=== PATIENT | female | born 1960 | race Caucasian/White ===

== ENCOUNTER → 2017-03-16 | Day surgery (SDC) | payer OTHER ==
[~2017-03-16] VITALS: Ht 167.6 cm; Wt 87.0 kg
[~2017-03-16] MED LIST: ACETAMINOPHEN 500 MG TAB PO ONE; AMT50 PO; FENTANYL CITRATE INJ 50 MCG/1 ML 2 ML VIAL ONE; FLUT0.15 NAE; HEPARIN SOD (PORCINE) 1000 UNIT/ML 10 ML VIAL ONE; IBUP-1050 PO; LEVO25TA5 PO; LISINOPRIL/HCTZ PO; MIDAZOLAM HCL 1 MG/ML 2ML VIAL ONE; NITROGLYCERIN/D5W 100MCG/ML 20ML SYR ONE; NURSING VERBAL MED ORDER ONE; NiCARDipine HCL INJ 2.5 MG/ML 10 ML AMP ONE; ZLF/100 PO; ZOLP5TAB6 PO
[2017-03-16 07:22] VITALS: BP 190/91; PULSE 70; TEMP 36.5; O2SAT 98; Ht 167.6 cm; Wt 87.0 kg
--- NOTE | 2017-03-16 09:08 | History & Physical Bridge Note ---
H&P Re-Evaluation Bridge Note: I have examined the patient, reviewed the History & Physical and in the interval since the performance of the History & Physical I have noted the following changes of clinical significance: No changes noted
--- NOTE | 2017-03-16 09:10 | Procedure Note ---
Pre-Mod Sedation Assessment General Date of Moderate Sedation: Mar 16, 2017. Vital Signs: Vital Signs Past 12 Hours Date Time Temp Pulse Resp B/P (MAP) Pulse Ox O2 Delivery O2 Flow Rate FiO2 03/16/17 07:22 36.5 70 16 190/91 98 Room Air Review Cardiovascular: regular rate, rhythm, no murmur Abdomen: non tender, soft, no organomegaly Lungs: lungs clear, normal breath sounds Airway Class: I Pre-Sedation Airway Assessment Oral Cavity: Dentures Able to Visualize Vocal Cords: No Short Thick Neck: No Hx of Sleep Apnea: No Smoking Status: Never Smoker Mallampati Classification: Class I ASA Classification: Class I Procedure Planning Contraindications-for Mod Sed: None Yes Notes The planned sedation has been discussed with the patient and consent obtained. I have identified the patient, determined the appropriateness of sedation and have assessed the patient immediately prior to the procedure. All medicine(s) and interventions are by my order.
--- NOTE | 2017-03-16 09:11 | Procedure Note ---
Post-Mod Sedation Assessment General Date of Moderate Sedation Mar 16, 2017. Stop 8:55AM Vital Signs: Vital Signs Past 12 Hours Date Time Temp Pulse Resp B/P (MAP) Pulse Ox O2 Delivery O2 Flow Rate FiO2 03/16/17 07:22 36.5 70 16 190/91 98 Room Air Review - Discharge Criteria Vital Signs Stable: Yes Alert/Oriented/Conversant: Yes Returned to Baseline Mental St: Yes Nausea Absent/Minimal: Yes Pain/Discomfort/Absent/Minimal: Yes Normal/Baseline Respirations: Yes Active Bleeding?: No Pt Received D/C Instructions: Yes Specific Proced. D/C Criteria Distal Pulses Present (Cardiac: Yes Groin site assessed-Card Cath: Yes Voided Prior To Discharge: Yes Discharged Patients Adult Escort/Transportation: Yes
--- NOTE | 2017-03-16 09:18 | Cardiac Catheterization ---
Procedure Note Procedure Date Mar 16, 2017. Pre-Procedure Diagnosis Angina AUC Score 7 Post-Procedure Diagnosis Normal Coronary Arteries Procedure(s) Performed Coronary Angiography Logistics Management Specialist Dr. Gaston [facility] Product Specialist(s) None Estimated Blood Loss None Medication(s) Versed, Lidocaine 1% Summary of Findings Normal Coronaries Hemodynamics Rest Ao: 152/97 Final Ao: 157/87 LV: Valve not crossed Recommendations Medical therapy and/or Counseling Specimens None Radiation Exposure (mGy) 919 Contrast (mls) 70 Fluids (cc crystalloids) 66 Procedural Complication(s) None Disposition Promotional Marketing Agent Holding/Recovery ACC Data Cardiac Status Clinical evaluation leading to the procedure CAD Presntation: Sx unlikely to be ischemic Anginal Classification: No symptoms Heart Failure: No Cardiogenic Shock w/in 24Hrs: No Cardiac Arrest w/in 24Hrs: No Imaging studies past 6 months: Yes Stress studies past 6 months: Yes Stress Echocardiogram: Yes - Indeterminant Cardiac CTA: Yes - Indeterminant Coronary Anatomy Dominant: Right Left Main (% Stenosis): Normal LAD (% Stenosis): Normal Circumflex (% Stenosis): Normal RCA (% Stenosis): Normal Diagnostic Status: Elective Closure Device Percutaneous Entry Location: Radial Closure Device: Radial Band Recommendations: Medical therapy and/or Counseling
--- NOTE | 2017-03-16 09:24 | Discharge Instructions ---
Discharge Instructions Procedure Procedure Date: Mar 16, 2017. Reason for Visit: Chest Pain,Equiv Car Ct, To Do. Discharge Discharge Date: Mar 16, 2017. Discharge Diagnosis: Normal Coronaries Last Recorded Wt (Kilograms): 87 Anesthesia Post Anesthesia Instructions: If you have had General Anesthesia or IV Sedation: * Do not drive today. * Resume driving when surgeon permits. * Do not make important decisions or sign legal documents today. * Call surgeon for: 1. Temperature elevations greater than 101 degrees F. 2. Uncontrollable pain. 3. Excessive bleeding. 4. Persistent nausea and vomiting. 5. Medication intolerance (nausea, vomiting or rash). * For nausea and vomiting use only clear liquids such as: tea, soda, bouillon until nausea subsides, then gradually increase diet as tolerated. * If you have any concerns or questions, call your surgeon's office. If physician is unavailable and it is an emergency, call 911 or go to the nearest emergency room. Instructions Activity Recommendations: limitations Recommended Home Diet: resume previous diet Allergies: Uncoded Allergies: NKDA (Allergy, Mild, 05/26/07) Provider Instructions ACTIVITY RECOMMENDATIONS: Excess manipulation of the wrist should be avoided for the next 24-48 hours. * No lifting over 2 pounds (approximately a 1/2 gallon of milk) with the utilized arm for 24 hours. * No strenuous activity such as bowling or tennis for 3 days. * Keep the site of the procedure covered with a bandage for 24 hours. *You may shower the day after the procedure. Do not take a tub bath or submerge the puncture site in water for the next 3 days. *Do not operate any motorized equipment for 3 days. SPECIAL CARE INSTRUCTIONS: The site may be slightly bruised and sore following your procedure. Should any of the following occur, contact the DrClaudio who performed your procedure. 1. Redness/inflammation, swelling, chills, or fever, or colored drainage at procedure site within 3-7 days after your procedure. 2. Coldness, discoloration, ongoing numbness, severe pain, or swelling. Expect mild tingling of hand and tenderness at the puncture site for up to three days. If this persists beyond three days, or other symptoms develop, notify the DrClaudio who performed your procedure. BLEEDING: If the procedure site on your wrist begins to bleed, do not panic 1. Place 1 or 2 fingers firmly just slightly above the insertion site to stop the bleeding. You may be able to feel your pulse as you hold pressure. 2. Lift your finger after 5 minutes to see if the bleeding has stopped. 3. Once the bleeding has stopped, gently wipe the wrist area clean with a bandage. * If the bleeding from your wrist does not stop after 10 minutes, or if there is a large amount of bleeding or spurting, call 911 (do not drive yourself to the hospital). SKIN IRRITATION: * You may experience some redness and/or swelling in the area where radiation was administered. If any skin irritation occurs, please contact your family physician. FOLLOW UP VISIT: Keep any scheduled doctor appointments. Follow Up Follow-up with: Follow-up with Dr. Bernardo as previously scheduled Stephanie Hazel Recommendations: Call your doctor if: * Temperature above 101 degrees * Pain not relieved by pain medicine ordered * There is increased drainage or redness from any incision * You have any unanswered questions or concerns. Your Doctors Instructions noted above were prepared by provider Cleve Gaston. Patient Signature Section: Patient Instructions Signature Page Jennifer Wise Patient (or Guardian) Signature/Date: I have read and understand the instructions given to me by my caregivers. Caregiver/RN/Doctor Signature/Date: The above-named patient and/or guardian has received patient instructions on this date. + Original Patient Signature Page (only) stays with chart. Please make copy for patient.
[2017-03-16 11:10] VITALS: BP 131/73; PULSE 83; O2SAT 96
== END | disposition home or self-care (01) ==
LOC: C.CATH 06:55
PROVIDERS: ATTEND Internal Medicine Interventional Cardiology
DX: I30.9 Acute pericarditis, unspecified (principal); I20.9 Angina pectoris, unspecified; R06.02 Shortness of breath; R53.83 Other fatigue; Z68.31 Body mass index [BMI] 31.0-31.9, adult; E03.9 Hypothyroidism, unspecified; E78.5 Hyperlipidemia, unspecified; F43.21 Adjustment disorder with depressed mood; Z90.710 Acquired absence of both cervix and uterus; Z83.3 Family history of diabetes mellitus; Z82.49 Family history of ischemic heart disease and other diseases of the circulatory system; Z87.891 Personal history of nicotine dependence

== ENCOUNTER 2025-06-18 13:05 | Observation (INO) ==
--- NOTE | 2025-06-18 13:31 | XRay Report ---
XR chest 1V portable CLINICAL HISTORY: Chest pain, nonspecific COMPARISON STUDY: 07/18/2020 FINDINGS: The patient is slightly rotated. The heart is normal in size. There is no failure. There is no acute parenchymal consolidation. There are no pleural effusions. There is minor linear atelectasi s/scarring at the lung bases. There is no pneumothorax. IMPRESSION: Minor basilar atelectasis/scarring. No acute findings. ACT 112: Negative or not required by law. Electronically signed by: Reji Auguste M.D. 06/18/2025 1:30 PM
[2025-06-18 13:39] LABS: Hematocrit (blood only) 42.3 % (37.0-47.0); Hemoglobin 14.1 g/dL (12.0-16.0); Immature Granulocytes # (auto) 0.01 K/uL (0.01-0.20); Immature Granulocytes % (auto) 0.2 %; Mean Corpuscular Hemoglobin 27.6 pg (25.0-34.0); Mean Corpuscular Volume 82.8 fL (80.0-100.0); Platelet Count 251 K/uL (130-400); RDW Standard Deviation 38.2 fL (36.4-46.3); Red Blood Count 5.11 M/uL (4.20-5.40); White Blood Count 6.32 K/ul (4.8-10.8)
--- NOTE | 2025-06-18 13:45 | Emergency Department Note ---
Impression & Plan Chest pain, HTN (hypertension), Abnormal EKG ED Provider Note NAME: AVNI WELSH AGE: 65 SEX: F : 1960 ARRIVES VIA: Walk-In INFORMANT: Patient, ED PROVIDER(S): Jaiden Beaver DO CHIEF COMPLAINT: Chest pain HPI: The patient is a 65-year-old female who presented to the emergency department for an evaluation of chest pain. The patient describes left-sided chest pain which began over the last 24 hours. The patient has a history of chest pain in the past. She did take nitroglycerin without any relief. She had a recent cardiac catheterization but no stenting was recommended. Patient has extensive history of hypertension. She also has a history of a bundle branch block. The patient states that she has been compliant with her outpatient medications otherwise. She denies having any fever or chills. She denies having any headache. She denies have any leg swelling or leg pain. ROS: See above HPI for pertinent positives & negatives. A total of 10 systems reviewed and were otherwise negative. PAST MEDICAL HISTORY: See Below PAST SURGICAL HISTORY: See Below FAMILY HISTORY: See Below SOCIAL HISTORY: See Below HOME MEDICATIONS: See Below ALLERGIES: See Below VITALS: See Below PHYSICAL EXAMINATION: GENERAL: Patient is awake alert in no acute distress patient is resting comfortably and showing no signs of anxiety EYES: The conjunctivae are clear. The pupils are round and reactive. EARS, NOSE, MOUTH AND THROAT: The nose is without any evidence of any deformity. NECK: The neck is nontender and supple. RESPIRATORY: Normal respiratory effort is noted there is no evidence of wheezing rhonchi or rales CARDIOVASCULAR: Regular rate and rhythm noted there no murmurs rubs or gallops normal S1 normal S2. GASTROINTESTINAL: The abdomen is soft. Abdomen is nontender. MUSCULOSKELETAL/EXTREMITIES: There is no evidence of gross deformity full range of motion is noted in the hips and shoulders. SKIN: There is no obvious evidence of any rash. There are no petechiae, pallor or cyanosis noted. NEUROLOGIC: Patient is awake alert and oriented x3 MEDICAL DECISION MAKING: The patient is a 65-year-old female who presented to the emergency department for an evaluation of chest pain. The patient describes chest pain which is worsened with exertion and does have radiation components. The patient is a history of similar episodes in the past. She had an abnormal nuclear test which led to a cardiac catheterization. Cardiac catheterization did not show any acute occlusion requiring stenting. The patient presented to the Emergency Department today because of ongoing symptoms. She was found to have hypertension. EKG showed no acute change from previous but did show changes consistent with LVH. She also has a bundle branch block pattern. I discussed patient's laboratory and radiographic studies with her. Cardiac biomarker was negative. At this time I do feel the patient is likely experiencing symptoms because of the elevated blood pressure especially the diastolic blood pressure. This may be affecting her coronary artery filling. I do feel that she would be a better candidate for inpatient management. She was treated with Ativan which did help her blood pressure somewhat as I do feel she does have some anxiety related to this pain. Given her findings and risk factors I discussed her condition with the on-call [facility] hospitalist. They have agreed to evaluate the patient in the emergency department for further management and disposition. Triage Nursing notes reviewed. Prior medical records reviewed Vital Signs: reviewed and remarkable for no significant abnormalities Differential diagnosis: Cardiac ischemia, aortic dissection, pulmonary embolism, pneumothorax, pneumonia, pericarditis, myocarditis, esophageal rupture, GERD, cholecystitis, pancreatitis, musculoskeletal, as well as other pathologies. ER treatment provided: See below Diagnostics interpreted by me: ECG: EKG was obtained in the emergency department. My interpretation is normal sinus rhythm at 70 bpm. Left bundle branch block pattern was noted. LVH was suggested by voltage criteria. This was compared to a tracing from June 08, 2014. No specific changes were noted. Cardiac Monitoring: An order was placed for continuous cardiac monitoring. The monitor shows a rate of 85 bpm with sinus rhythm. Laboratory studies: As stated above and show below. Imaging studies: See below. Radiographic imaging was reviewed by myself Consultation(s): I discussed this case with Dr. Walker [facility] Past Med/Surg History Problem List (Updated 06/18/25 @ 15:22 by Jaiden Beaver DO) Abnormal EKG (Acute) Chest pain (Acute) Abnormal nuclear cardiac imaging test Left arm pain Palpitations Obesity Left ventricular hypertrophy PASTRANA (dyspnea on exertion) Pre-diabetes Vitamin D deficiency Anxiety and depression Fibromyalgia Vaginal bleeding Numbness and tingling of both legs Transient insomnia Small bowel obstruction (~04/17/08) at [facility] Hyperlipidemia Benign neoplasm of colon (~07/2016) 07/14/2016-hyperplastic Adjustment disorder with depressed mood Hypothyroid Urinary incontinence HTN (hypertension) (Acute) Neck pain on left side Medical History Pericarditis (~1997) Grief (~09/16/19) Loss of granddaughter Gout Surgical History History of cardiac catheterization 2003 and 2015-normal History of heart surgery Heart cath x 3 History of hysterectomy (~2003) Heavy periods-no cancer-ovaries Family History Father Diabetes Hypertension Myocardial infarction Grandfather (Maternal) Cardiac disorder Kidney stones Prostate cancer Denies family history of Ovarian cancer Breast cancer Lung cancer Colorectal cancer Social History Smoking Status: Never smoker Tobacco Type: Cigarettes Age Started Using Tobacco: 14; Age Quit Using Tobacco: 33; packs per day: 0.25; Second Hand Exposure: No; Do You Dip or Chew Tobacco: No; Hx Alcohol Use: No Hx Substance Use: No Preferred Language: Moldovan Communication Ability: Effective Visual Impairment: No Limitations Hearing Ability: Hard of Hearing Lead Auditor Required: No Beliefs That Will Affect Care: None marital status: Current Living Situation: Spouse current occupational status: employed current occupation: cashier clerk at [employer] How many Children do You have: 3 Feels Safe at Home: Yes Childhood Exposure to Second-Hand Smoke: No Diet: regular caffeine: No during the past year weight has: remained stable Dental Care, Regularly: No Physical Activity Frequency: 5-6 Times per Week Physical Activity Frequency Comment: walk Seatbelt Use: always Sunscreen Use: Yes Assistive Devices: Hearing Aid - Bilateral Allergies Allergies Allergy/AdvReac Type Severity Reaction Status Date / Time No Known Drug Allergies Allergy Verified 03/14/25 07:09 Home Meds Home Medications Medication Instructions Recorded Confirmed acetaminophen 650 mg 650 mg PO Q12H PRN Pain 03/19/22 06/18/25 tablet,extended release (Tylenol Arthritis Pain) nitroglycerin 0.4 mg sublingual 0.4 mg sublingual Q5M PRN Chest 11/30/24 06/18/25 tablet Pain pantoprazole 20 mg tablet,delayed 20 mg PO DAILY 11/30/24 06/18/25 release estradiol 0.01% (0.1 mg/gram) 1 g vaginal UD 06/18/25 06/18/25 vaginal cream hydralazine 25 mg tablet 25 mg PO BID 06/18/25 06/18/25 lisinopril 10 mg tablet 20 mg PO DAILY 06/18/25 06/18/25 miscellaneous medical supply 06/18/25 06/18/25 Previous Rx's Medication Instructions Recorded nystatin 100,000 unit/gram topical 1 applic topical TID #60 grams 08/13/22 powder metoprolol succinate 25 mg 25 mg PO DAILY #90 tabs 11/30/24 tablet,extended release 24 hr tirzepatide 10 mg/0.5 mL 10 mg (0.5 mL) subcut .weekly #2 mL 11/30/24 subcutaneous pen injector (Katherine) gabapentin 300 mg capsule 300 mg PO TID #90 caps 12/10/24 hydrochlorothiazide 25 mg tablet 25 mg PO DAILY #90 tabs 02/18/25 metformin 500 mg tablet 500 mg PO DAILY #90 tabs 06/13/25 Results & Data (ED) Vital Signs Vital Signs - 24 hr 06/18/25 13:12 06/18/25 13:24 06/18/25 13:29 Temperature 36.6 C Temperature Source Temporal Artery Scan Pulse Rate 80 Pulse Rate [Apical] 74 Pulse Strength [Apical] Normal Respiratory Rate 18 19 Respiratory Effort / Characteristics Non-Labored Spontaneous Non-Labored Respiratory Depth Normal Normal Respiratory Pattern Regular Blood Pressure 173/108 H Blood Pressure [Right Arm] 185/107 H Blood Pressure Mean 129 Blood Pressure Mean [Right Arm] 133 Blood Pressure Position Sitting Blood Pressure Position [Right Arm] Pulse Oximetry 98 96 98 Oxygen Delivery Method Room Air Room Air Sepsis Recent Fever Within 48 Hours No Sepsis New/Unexplained Change in Mental Status No Sepsis Action Taken by Nursing No Action Required 06/18/25 14:01 06/18/25 14:01 06/18/25 14:19 Temperature Temperature Source Pulse Rate 77 Pulse Rate [Apical] 71 Pulse Strength [Apical] Respiratory Rate 17 Respiratory Effort / Characteristics Non-Labored Spontaneous Respiratory Depth Normal Respiratory Pattern Regular Blood Pressure Blood Pressure [Right Arm] 169/103 H Blood Pressure Mean Blood Pressure Mean [Right Arm] 125 Blood Pressure Position Blood Pressure Position [Right Arm] Lying Pulse Oximetry 96 96 Oxygen Delivery Method Room Air Room Air Sepsis Recent Fever Within 48 Hours Sepsis New/Unexplained Change in Mental Status Sepsis Action Taken by Nursing 06/18/25 15:00 Temperature Temperature Source Pulse Rate Pulse Rate [Apical] 77 Pulse Strength [Apical] Respiratory Rate 14 Respiratory Effort / Characteristics Respiratory Depth Respiratory Pattern Blood Pressure Blood Pressure [Right Arm] 153/94 H Blood Pressure Mean Blood Pressure Mean [Right Arm] 113 Blood Pressure Position Blood Pressure Position [Right Arm] Pulse Oximetry 96 Oxygen Delivery Method Sepsis Recent Fever Within 48 Hours Sepsis New/Unexplained Change in Mental Status Sepsis Action Taken by Long Term Medications Current Medication List: was personally reviewed by me Laboratory Data Attestation: I reviewed the patient's lab results. 06/18/25 13:20 06/18/25 13:20 Lab Results 06/18/25 Range/Units 13:20 WBC 6.32 (4.8-10.8) K/ul RBC 5.11 (4.20-5.40) M/uL Hgb 14.1 (12.0-16.0) g/dL Hct 42.3 (37.0-47.0) % MCV 82.8 (80.0-100.0) fL MCH 27.6 (25.0-34.0) pg MCHC 33.3 (32.0-36.0) g/dL RDW Std Deviation 38.2 (36.4-46.3) fL RDW Coeff of Lan 12.7 (11.5-14.5) % Plt Count 251 (130-400) K/uL MPV 9.6 (9.4-12.4) fL Immature Gran % (Auto) 0.2 % Neut % (Auto) 57.2 % Lymph % (Auto) 28.2 % Powell % (Auto) 10.3 % Eos % (Auto) 3.6 % Baso % (Auto) 0.5 % Neut # (Auto) 3.62 (1.40-6.50) K/uL Lymph # (Auto) 1.78 (1.20-3.40) K/uL Powell # (Auto) 0.65 H (0.11-0.59) K/uL Eos # (Auto) 0.23 (0.00-0.50) K/uL Baso # (Auto) 0.03 (0.00-0.20) K/uL Immature Gran # (Auto) 0.01 (0.01-0.20) K/uL PT 10.6 (9.0-12.0) Seconds INR 1.0 (0.9-1.1) APTT 27 (21-31) Seconds PTT Ratio 1.0 Sodium 140 (136-145) mmol/L Potassium 4.2 (3.5-5.1) mmol/L Chloride 106 (98-107) mmol/L Carbon Dioxide 29 (21-32) mmol/L Anion Gap 5 (3-11) BUN 26 H (6-23) mg/dl Creatinine 1.07 (0.6-1.2) mg/dl Est Cr Clr Drug Dosing 47.8 ml/min eGFR 56.93 BUN/Creatinine Ratio 24.3 H (10-20) Glucose 83 (70-99(Fasting)) mg/dl Calcium 10.0 (8.6-10.3) mg/dl Total Bilirubin 0.5 (0.2-1.0) mg/dl AST 17 (13-39) U/L ALT 7 (7-52) U/L Alkaline Phosphatase 75 (34-104) U/L Troponin I High Sens 6.0 (0-14) pg/ml Total Protein 7.3 (6.0-8.3) gm/dl Albumin 4.6 (3.4-5.0) gm/dl Globulin 2.7 (2.5-4.0) gm/dl Albumin/Globulin Ratio 1.7 (0.9-2) Lipase 19 (11-82) U/L Administered Medications Discontinued Medications Lorazepam (Lorazepam 1 Mg/1 Ml Syr Ed Inj Use) 0.5 mg IV ONE STA Stop: 06/18/25 13:43 Last Admin: 06/18/25 14:03 Dose: 0.5 mg Documented By: Coty Imaging Data Attestation: I personally reviewed and interpreted this imaging study as follows: My Impression: 1 view chest x-ray was obtained in the emergency department. My interpretation is no free air or definite infiltrate, final report below. Radiologist's Impression: Chest X-Ray 06/18/25 13:15 XR chest 1V portable CLINICAL HISTORY: Chest pain, nonspecific COMPARISON STUDY: 07/18/2020 FINDINGS: The patient is slightly rotated. The heart is normal in size. There is no failure. There is no acute parenchymal consolidation. There are no pleural effusions. There is minor linear atelectasis/scarring at the lung bases. There is no pneumothorax. IMPRESSION: Minor basilar atelectasis/scarring. No acute findings. ACT 112: Negative or not required by law. Electronically signed by: Reji Auguste M.D. 06/18/2025 1:30 PM Discharge Plan Visit Data Chief Complaint: Cardiac Assessment Stated Complaint: CHEST PAIN, HIGH BLOOD PRESSURE ED Provider: Jaiden Beaver Discharge Problem: Chest pain, HTN (hypertension), Abnormal EKG Patient Disposition: Being Evaluated by Hospitalist Condition: Fair Forms Stand Alone Forms: My [facility] Prescriptions Prescriptions: No Action hydrochlorothiazide 25 mg tablet 25 mg PO DAILY Qty: 90 3RF metformin 500 mg tablet 500 mg PO DAILY Qty: 90 1RF nystatin 100,000 unit/gram powder 1 applic topical TID Qty: 60 1RF acetaminophen [Tylenol Arthritis Pain] 650 mg tablet extended release 650 mg PO Q12H PRN (Reason: Pain) pantoprazole 20 mg tablet,delayed release (DR/EC) 20 mg PO DAILY nitroglycerin 0.4 mg tablet, sublingual 0.4 mg sublingual Q5M PRN (Reason: Chest Pain) metoprolol succinate 25 mg tablet extended release 24 hr 25 mg PO DAILY Qty: 90 3RF Mounjaro 10 mg/0.5 mL pen injector 10 mg subcut .weekly Qty: 2 11RF gabapentin 300 mg capsule 300 mg PO TID Qty: 90 2RF hydralazine 25 mg tablet 25 mg PO BID estradiol 0.01 % (0.1 mg/gram) cream 1 g VAGINAL UD (DME) miscellaneous medical supply Misc VAGINAL Rx Instructions: blood pressure cuff lisinopril 10 mg tablet 20 mg PO DAILY Referrals Referrals: Chavez Donald CRNP [Primary Care Provider] -
[2025-06-18] MEDS: LORazepam 1 MG/1 ML SYR ED Inj Use IV STA (14:03)
[2025-06-18 14:04] LABS: INR 1.0 (0.9-1.1); Partial Thromboplastin Time 27 Seconds (21-31); Prothrombin Time 10.6 Seconds (9.0-12.0)
[2025-06-18 14:10] LABS: Alanine Aminotransferase 7.0 U/L (7-52); Albumin Globulin Ratio 1.7 (0.9-2); Albumin Level 4.6 gm/dl (3.4-5.0); Alkaline Phosphatase 75.0 U/L (34-104); Anion Gap 5.0 (3-11); Bilirubin,Total 0.5 mg/dl (0.2-1.0); Blood Urea Nitrogen 26.0 mg/dl (6-23); Calcium 10.0 mg/dl (8.6-10.3); Carbon Dioxide 29.0 mmol/L (21-32); Chloride 106.0 mmol/L (98-107); Creatinine Clr Calc Pharmacy 47.8 ml/min; Globulin 2.7 gm/dl (2.5-4.0); Glucose 83.0 mg/dl (70-99(Fasting)); Lipase 19.0 U/L (11-82); Potassium 4.2 mmol/L (3.5-5.1); Sodium 140.0 mmol/L (136-145); Total Protein 7.3 gm/dl (6.0-8.3)
--- NOTE | 2025-06-18 16:13 | History & Physical Report ---
Date of Service June 18, 2025 Assessment & Plan (1) Atypical chest pain: Plan: Observation with telemetry. Serial troponins. Repeat EKG in the morning, June 19 (2) Uncontrolled hypertension: Plan: Uptitrate hydralazine dosage. Discontinue hydrochlorothiazide. Continue MEGHAN inhibitor because she has underlying diabetes (3) Anxiety disorder: Plan: Lorazepam as needed (4) Type 2 diabetes mellitus: Plan: ADA diet. Sliding scale coverage. Metformin and Mounjaro are temporarily on hold Plan Hopeful discharge to home tomorrow, June 19 History of Present Illness Chief Complaint: Chest discomfort, anxiety Primary Care Provider: BRETT Carlos 65-year-old female who presents with vague chest discomfort that occurred at rest accompanied by anxiety. She also has uncontrolled hypertension. Initial troponin is normal and initial EKG is negative for any acute changes. She recently underwent left heart catheterization with negative results earlier this year. Cardiac echo done in November of this year reveals severe left ventricular hypertrophy with normal ejection fraction. Admission chest x-ray is unremarkable. Her first troponin is normal and maximum blood pressure recorded in the ED was 185/107. She denies syncope or palpitations. She is admitted for further evaluation and treatment Allergies Allergy/AdvReac Type Severity Reaction Status Date / Time No Known Drug Allergies Allergy Verified 03/14/25 07:09 Home Medications Medication Instructions Recorded Confirmed Type acetaminophen 650 mg 650 mg PO Q12H PRN Pain 03/19/22 06/18/25 History tablet,extended release (Tylenol Arthritis Pain) nystatin 100,000 unit/gram topical 1 applic topical TID #60 grams 08/13/22 06/18/25 Rx powder metoprolol succinate 25 mg 25 mg PO DAILY #90 tabs 11/30/24 06/18/25 Rx tablet,extended release 24 hr nitroglycerin 0.4 mg sublingual 0.4 mg sublingual Q5M PRN Chest 11/30/24 06/18/25 History tablet Pain pantoprazole 20 mg tablet,delayed 20 mg PO DAILY 11/30/24 06/18/25 History release tirzepatide 10 mg/0.5 mL 10 mg (0.5 mL) subcut .weekly #2 mL 11/30/24 06/18/25 Rx subcutaneous pen injector (Mounjaro) gabapentin 300 mg capsule 300 mg PO TID #90 caps 12/10/24 06/18/25 Rx hydrochlorothiazide 25 mg tablet 25 mg PO DAILY #90 tabs 02/18/25 06/18/25 Rx metformin 500 mg tablet 500 mg PO DAILY #90 tabs 06/13/25 06/18/25 Rx estradiol 0.01% (0.1 mg/gram) 1 g vaginal UD 06/18/25 06/18/25 History vaginal cream hydralazine 25 mg tablet 25 mg PO BID 06/18/25 06/18/25 History lisinopril 10 mg tablet 20 mg PO DAILY 06/18/25 06/18/25 History miscellaneous medical supply 06/18/25 06/18/25 History Past Med/Surg History Problem List (Updated 06/18/25 @ 16:12 by Gary Walker MD) Type 2 diabetes mellitus Anxiety disorder Uncontrolled hypertension Atypical chest pain Abnormal EKG (Acute) Chest pain (Acute) Abnormal nuclear cardiac imaging test Left arm pain Palpitations Obesity Left ventricular hypertrophy PASTRANA (dyspnea on exertion) Pre-diabetes Vitamin D deficiency Anxiety and depression Fibromyalgia Vaginal bleeding Numbness and tingling of both legs Transient insomnia Small bowel obstruction (~04/17/08) at [facility] Hyperlipidemia Benign neoplasm of colon (~07/2016) 07/14/2016-hyperplastic Adjustment disorder with depressed mood Hypothyroid Urinary incontinence HTN (hypertension) (Acute) Neck pain on left side Medical History Pericarditis (~1997) Grief (~09/16/19) Loss of granddaughter Gout Surgical History History of cardiac catheterization 2003 and 2016-normal History of heart surgery Heart cath x 3 History of hysterectomy (~2003) Heavy periods-no cancer-ovaries Family History Father Diabetes Hypertension Myocardial infarction Grandfather (Maternal) Cardiac disorder Kidney stones Prostate cancer Denies family history of Ovarian cancer Breast cancer Lung cancer Colorectal cancer Social History Smoking Status: Never smoker Tobacco Type: Cigarettes Age Started Using Tobacco: 14; Age Quit Using Tobacco: 33; packs per day: 0.25; Second Hand Exposure: No; Do You Dip or Chew Tobacco: No; Hx Alcohol Use: No Hx Substance Use: No Preferred Language: [place] Communication Ability: Effective Visual Impairment: No Limitations Hearing Ability: Hard of Hearing Rn Labor Delivery Required: No Beliefs That Will Affect Care: None marital status: Current Living Situation: Spouse current occupational status: employed current occupation: parking cashier at [employer] How many Children do You have: 3 Feels Safe at Home: Yes Childhood Exposure to Second-Hand Smoke: No Diet: regular caffeine: No during the past year weight has: remained stable Dental Care, Regularly: No Physical Activity Frequency: 5-6 Times per Week Physical Activity Frequency Comment: walk Seatbelt Use: always Sunscreen Use: Yes Assistive Devices: Hearing Aid - Bilateral Review of Systems 2 Review of Systems: Constitutionalno fever or chills ENTno blurred vision, no double vision, no epistaxis, no sore throat Respiratoryno cough, no wheezing, no shortness of breath Cardiacno palpitations, no syncope. Chest discomfort at rest prior to admission has resolved Thu nausea, vomiting, diarrhea, melena, hematochezia GUno urinary retention, no urinary incontinence, no dysuria, no hematuria Musculoskeletalno joint pain, no muscle tenderness Skinno bruising, no rashes, no pruritus Neurono isolated weakness, no paresthesia, no weakness Psychno depression. She was anxious on initial presentation to the ED Physical Exam 2 Physical Exam: General-alert and oriented x3, no fever, no chills HEENT-head atraumatic and normocephalic, pupils equal and reactive to light, extraocular muscles intact Neck-no lymphadenopathy or thyromegaly, trachea midline Chest-clear to auscultation. No rales, wheezing or rhonchi Cardiac-regular rate and rhythm, normal S1 and S2 Abdomen-normal bowel sounds, no hepatosplenomegaly Extremities-no cyanosis, clubbing, or edema Neuro-cranial nerves II through XII intact, motor and sensory function within normal limits, strength symmetrical, no focal deficits Psych-normal affect, normal mood Results & Data Results & Data Vital Signs (Past 12 Hours) Vital Signs Temp Pulse Pulse Resp BP BP Pulse Ox 06/18/25 15:30 68 13 96 06/18/25 15:30 156/104 H 06/18/25 15:15 174/108 H 06/18/25 15:15 73 20 97 06/18/25 15:00 77 14 153/94 H 96 06/18/25 14:19 77 06/18/25 14:01 71 17 169/103 H 96 06/18/25 14:01 96 06/18/25 13:29 74 19 185/107 H 98 06/18/25 13:24 96 06/18/25 13:12 36.6 C 80 18 173/108 H 98 O2 Del Method 06/18/25 15:30 Room Air 06/18/25 15:30 06/18/25 15:15 06/18/25 15:15 06/18/25 15:00 06/18/25 14:19 06/18/25 14:01 Room Air 06/18/25 14:01 Room Air 06/18/25 13:29 Room Air 06/18/25 13:24 06/18/25 13:12 Room Air Laboratory Results 06/18/25 13:20 06/18/25 13:20 Code Status & VTE Plan Code Status Full code PG Care Time/CCT Total # of Minutes Spent Total Time Spent with Patient: Total time spent is greater than 50% in coordination of care (as documented) at patient's floor/unit and/or counseling patient: Coding Level of Care Code 41395 INT INP/OBS CARE 3/75MIN Diagnoses Atypical chest pain R07.89 Uncontrolled hypertension I10 Anxiety disorder F41.9 Type 2 diabetes mellitus E11.9
[2025-06-18] MEDS ORDERED: DEXTROSE 50% 50 ML SYRINGE IV PRN (17:54)
[2025-06-18] MEDS ORDERED: NITROGLYCERIN SL 0.4 MG/TAB TAB SL PRN (17:54)
[2025-06-18] MEDS ORDERED: CARBOHYDRATES FOR HYPOGLYCEMIA PO PRN (17:54)
[2025-06-18] MEDS ORDERED: ONDANSETRON INJ 2 MG/ML 2 ML VIAL IV PRN (17:54)
[2025-06-18] MEDS ORDERED: GLUCOSE 40% GEL 15 GM TUBE PO PRN (17:54)
[2025-06-18] MEDS ORDERED: GLUCAGON FOR INJ 1 MG VIAL SQ PRN (17:54)
[2025-06-18] MEDS ORDERED: LORazepam 0.5 MG TAB PO PRN (17:54)
[2025-06-18] MEDS ORDERED: GLUCOSE 10 TAB/TUBE PO PRN (17:54)
[2025-06-18] MEDS: INSULIN ASPART PER UNIT CHARGE SC SCH (19:08)
[2025-06-18] MEDS: GABAPENTIN 300 MG CAP PO SCH (20:26)
[2025-06-18] MEDS: ACETAMINOPHEN 325 MG TAB PO PRN (20:26)
[2025-06-19] MEDS: METOPROLOL SUCC 25MG EXT REL TAB PO SCH (09:19)
--- NOTE | 2025-06-19 11:00 | Discharge Summary ---
Discharge Summary Date of Service June 19, 2025 Principal Dx & Hospital Course #1 = Principal Diagnosis (1) Atypical chest pain: Observation with telemetry. Serial troponins are normal. Repeat EKG done today, June 19, shows no new findings. (2) Uncontrolled hypertension: Blood pressure is now controlled after uptitration of hydralazine dosage. Hydrochlorothiazide has been discontinued. Lisinopril dosage has been de creased. (3) Anxiety disorder: Lorazepam as needed. This will continue on a as needed basis at discharge (4) Type 2 diabetes mellitus: ADA diet. Sliding scale coverage. Metformin and Mounjaro are temporarily on hold and will be restarted at discharge Plan Home today, June 19 Admission HPI Per Admitting Provider 65-year-old female who presents with vague chest discomfort that occurred at rest accompanied by anxiety. She also has uncontrolled hypertension. Initial troponin is normal and initial EKG is negative for any acute changes. She recently underwent left heart catheterization with negative results earlier this year. Cardiac echo done in November of this year reveals severe left ventricular hypertrophy with normal ejection fraction. Admission chest x-ray is unremarkable. Her first troponin is normal and maximum blood pressure recorded in the ED was 185/107. She denies syncope or palpitations. She is admitted for further evaluation and treatment Discharge Exam General-alert and oriented x3, no fever, no chills HEENT-head atraumatic and normocephalic, pupils equal and reactive to light, extraocular muscles intact Neck-no lymphadenopathy or thyromegaly, trachea midline Chest-clear to auscultation. No rales, wheezing or rhonchi Cardiac-regular rate and rhythm, normal S1 and S2 Abdomen-normal bowel sounds, no hepatosplenomegaly Extremities-no cyanosis, clubbing, or edema Neuro-cranial nerves II through XII intact, motor and sensory function within normal limits, strength symmetrical, no focal deficits Psych-normal affect, normal mood Discharge Plan Discharge Items Patient Disposition: Home - Self-Care Reason For Visit: CHEST PAIN, UNCONTROLLED HTN Discharge Diagnosis: Atypical chest pain, uncontrolled hypertension, anxiety disorder Condition on Discharge: Good Activity: Resume your previous activity Non-emergency contact: Primary Care Provider Call non-emergency contact if: your symptoms worsen Follow-up/Referrals: Chavez Donald CRNP [Primary Care Provider] - Diet: Carb Consistent or DM2 and Heart Healthy Addtl Attending Provider Instructions: Hydrochlorothiazide has been discontinued. Hydralazine dosage has been increased. Lisinopril dosage has been decreased. Use lorazepam as needed for anxiety. New prescriptions have been sent to your pharmacy. Follow-up with primary care provider as soon as possible Pending Studies at Discharge: No Stand-Alone Forms: [facility], Smoking Cessation, Work/School Release Medications and DC Order Prescriptions: New lorazepam 0.5 mg Tablet 0.5 mg PO Q6H PRN (Reason: anxiety) Qty: 20 0RF lisinopril 10 mg Tablet 10 mg PO DAILY Qty: 30 0RF hydralazine 50 mg Tablet 50 mg PO TID Qty: 90 0RF Continued metformin 500 mg tablet 500 mg PO DAILY Qty: 90 1RF nystatin 100,000 unit/gram powder 1 applic topical TID Qty: 60 1RF acetaminophen [Tylenol Arthritis Pain] 650 mg tablet extended release 650 mg PO Q12H PRN (Reason: Pain) pantoprazole 20 mg tablet,delayed release (DR/EC) 20 mg PO DAILY nitroglycerin 0.4 mg tablet, sublingual 0.4 mg sublingual Q5M PRN (Reason: Chest Pain) metoprolol succinate 25 mg tablet extended release 24 hr 25 mg PO DAILY Qty: 90 3RF Mounjaro 10 mg/0.5 mL pen injector 10 mg subcut .weekly Qty: 2 11RF gabapentin 300 mg capsule 300 mg PO TID Qty: 90 2RF estradiol 0.01 % (0.1 mg/gram) cream 1 g VAGINAL UD (DME) miscellaneous medical supply Mis VAGINAL Rx Instructions: blood pressure cuff Discontinued hydrochlorothiazide 25 mg tablet 25 mg PO DAILY Qty: 90 3RF hydralazine 25 mg tablet 25 mg PO BID lisinopril 10 mg tablet 20 mg PO DAILY Discharge Orders: Discharge Order (Routine); Ordered 06/19/25 Ordered By: Gary Walker Admission Data Admit Date/Time: 06/18/25 16:01 Attending Provider: Gary Walker Admit Provider: Gary Walker Primary Care Provider: Chavez Donald Other Providers: Gary Walker Hospital Stay Data Consultations 06/18/25 15:14 ED Decision to Admit Stat Pending Results Patient Have Any Pending Studies at Discharge: No Discharge Instructions Given to Patient (Per Discharging Provider) Hydrochlorothiazide has been discontinued. Hydralazine dosage has been increased. Lisinopril dosage has been decreased. Use lorazepam as needed for anxiety. New prescriptions have been sent to your pharmacy. Follow-up with primary care provider as soon as possible Total Time Total Time Spent Total Time Spent (In Minutes): 45 minutes. Total time included patient exam, discharge planning, medication reconciliation. Coding Level of Care Code 05215 INP/OBS DISCH >30 MIN Diagnoses Atypical chest pain R07.89 Uncontrolled hypertension I10 Anxiety disorder F41.9 Type 2 diabetes mellitus E11.9
[2025-06-19 11:23] VITALS: RESP 18; TEMP 98.1; O2SAT 94
[2025-06-19 11:47] VITALS: BP 151/100; PULSE 86
--- NOTE | 2025-06-21 08:19 | Electrocardiogram Report ---
Test Reason : Blood Pressure : */* mmHG Vent. Rate : 78 BPM Atrial Rate : 78 BPM P-R Int : 198 ms QRS Dur : 116 ms QT Int : 380 ms P-R-T Axes : 58 -34 68 degrees QTcB Int : 433 ms Normal sinus rhythm Left axis deviation Left ventricular hypertrophy with QRS widening ( R in aVL , [place] product ) Cannot rule out Septal infarct , age undetermined Abnormal ECG When compared with ECG of 08-Jun-2014 11:16, QRS duration has increased Confirmed by Curt Carson ([id number]) on 06/21/2025 8:19:00 AM Referred By: Confirmed By: Curt Carson
--- NOTE | 2025-06-21 08:35 | Electrocardiogram Report ---
Test Reason : Blood Pressure : */* mmHG Vent. Rate : 67 BPM Atrial Rate : 67 BPM P-R Int : 204 ms QRS Dur : 118 ms QT Int : 414 ms P-R-T Axes : 48 -46 53 degrees QTcB Int : 437 ms Normal sinus rhythm Left anterior fascicular block Left ventricular hypertrophy with QRS widening ( R in aVL , Ru product ) Cannot rule out Septal infarct (cited on or before 18-Jun-2025) Abnormal ECG When compared with ECG of 18-Jun-2025 13:18, (unconfirmed) No significant change was found Confirmed by Curt Carson ([id number]) on 06/21/2025 8:35:24 AM Referred By: REFERRED SELF Confirmed By: Curt Carson
== END 2025-06-19 13:45 | disposition home or self-care (01) ==
LOC: SUATTDRO → 2N 13:05 → ED 13:05 → 2N 17:11